=== PATIENT | male | born 1950 | race Caucasian/White ===

== ENCOUNTER 2016-11-14 08:48 | Day surgery (SDC) | payer MEDICARE, BC ==
[2016-11-14] MEDS ORDERED: PROPOFOL 10 MG/ML VIAL IV ONE (15:50)
[2016-11-14] MEDS ORDERED: FENTANYL PF 100MCG/2ML VIAL IV ONE (15:50)
[2016-11-14] MEDS ORDERED: LIDOCAINE 2% MDV (20MG/ML) 20ML VIAL IV ONE (15:50)
--- NOTE | 2016-11-15 16:17 | Operative Note ---
DATE OF SURGERY: 11/14/2016 REFERRING PHYSICIAN: David Encinas DO PREOPERATIVE DIAGNOSIS: Gastrointestinal bleed. POSTOPERATIVE DIAGNOSES: 1. Normal EGD. 2. Ascending colon polyp. OPERATION: EGD AND COLONOSCOPY WITH COLD SNARE POLYPECTOMY. PREPARATION QUALITY: Excellent. Estimated Blood Loss: Minimal. SPECIMENS: Include ascending colon polyp. COMPLICATIONS: None apparent. PROCEDURE: After informed consent was obtained, the patient was placed in the left lateral decubitus position in the Endoscopy Suite, sedated and monitored by the Department of Anesthesia. A well-lubricated GIF 180 gastroscope was placed in the posterior oropharynx and under direct visualization passed to the proximal esophagus. The endoscope was advanced to the proximal, mid and distal esophagus. The GE junction, the esophagus, gastric body, antrum, pylorus, duodenal bulb and sweep were unremarkable. No polyps, masses, lesions, inflammation, strictures, or abnormalities were noted. J-turn views of the proximal stomach were unremarkable. The endoscope was straightened and retracted from the patient with no new findings or abnormalities identified. Digital rectal exam was unremarkable. A well-lubricated PCF-180 colonoscope was inserted into the rectum and advanced to the cecum. The cecum was unremarkable. The ileocecal valve and appendiceal orifice were unremarkable. The ascending colon revealed a 5 mm to 6 mm sessile polyp, removed by cold snare with minimal bleeding noted. The polyp was retrieved without difficulty. The remainder of the ascending colon, transverse colon, descending colon, sigmoid colon were unremarkable. J-turn views of the anorectum were unremarkable. The endoscope was straightened, the rectal ampulla deflated and the endoscope was removed. RECOMMENDATIONS: The patient is to resume his medications and diet. He will require repeat colonoscopy in 3-5 years pending tissue histology. As always, thank you for allowing me to participate in the care of your patient. CC: Anurag ROAMN
== END 2016-11-14 11:30 | disposition home or self-care (01) ==
LOC: HOP 08:48
PROVIDERS: ATTEND Internal Medicine Gastroenterology
DX: D12.2 Benign neoplasm of ascending colon (principal)
CPT/HCPCS: 88305; 45385; 43235; 00810; J3010